=== PATIENT | male | born 1980 | race African-American/Black ===

== ENCOUNTER 2022-10-26 22:18 | Emergency (ER) | payer OTHER, SELFPAY ==
[2022-10-26 22:25] VITALS: BP 192/115; PULSE 91; RESP 16; TEMP 36.7; O2SAT 99; BMI 29.0
[2022-10-26 22:28] VITALS: BP 192/115
[2022-10-26 22:43] VITALS: PULSE 91
--- NOTE | 2022-10-26 22:56 | ECG_ITS ---
[facility] Test Date: 2022-10-26 Pat Name: NARAYAN GARZA Department: Room: - Gender: Male [employer] Activities Clerk: : 1980 Requested By: SHAIKH JUAN Order Number: [id number] Reading MD: LAYLA URIBE Measurements Intervals [place] Rate: 91 P: 62 [place]: 168 QRS: -31 QRSD: 90 T: 79 QT: 382 QTc: 431 Interpretive Statements 1100 Sinus rhythm 4068 Nonspecific [place] abnormality 7200 Abnormal left axis deviation 8003 Consistent with pulmonary disease 9150 abnormal ECG No previous ECG available for comparison Electronically Signed On 10-27-2022 6:43:16 EDT by LAYLA URIBE
--- NOTE | 2022-10-26 22:58 | ED.GENADUL1 ---
HPI - General Adult General Chief complaint: Chest Pain Stated complaint: CHEST PAIN Time Seen by Provider: 10/26/22 22:45 Source: patient Mode of arrival: walk-in History of Present Illness HPI narrative: 42-year-old male presents for evaluation of muscle spasms. Initially they were in his right flank earlier today and then started having them on the left side of his chest. He denies any shortness of breath. He has not smoke. He denies any nausea vomiting or diarrhea. 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 He states that he feels like he keeps up with his fluid intake and drinks plenty of bottles of water throughout the day. He is tearful and anxious. He states he feels like there is something seriously wrong with him. He is not suicidal or homicidal. He states that he is and has kids. He is not having any personal issues at this time. He was recently seen by Dr. Damon and medications were ordered for him but he has not started them yet. Related Data Home Medications Medication Instructions Recorded Confirmed amlodipine 10 mg tablet 10 mg PO QDAY 10/26/22 10/26/22 amlodipine 5 mg tablet 5 mg PO QDAY 10/26/22 10/26/22 fluoxetine 10 mg tablet 10 mg PO QDAY 10/26/22 10/26/22 hydroxyzine HCl 25 mg tablet 25 mg PO Q8H 10/26/22 10/26/22 lamotrigine 25 mg tablet 25 mg PO Q12H 10/26/22 10/26/22 losartan 100 1 tab PO QDAY 10/26/22 10/26/22 mg-hydrochlorothiazide 25 mg tablet naltrexone 50 mg tablet 50 mg PO Q24H 10/26/22 10/26/22 Allergies Allergy/AdvReac Type Severity Reaction Status Date / Time Penicillins Allergy Intermediate hives Verified 10/26/22 22:36 Review of Systems ROS Status of ROS 10 or more systems reviewed and unremarkable except as noted in history and below PFSH PFS Social History Smoking status: Never smoker Exam Narrative Exam Narrative: Nurses note and vital signs reviewed and patient is not hypoxic. Pressure was notably elevated at arrival General: Nontoxic but tearful otherwise well-appearing -[place] male, no respiratory distress Skin: Warm, dry, no pallor noted. There is no rash noted. Head: Normocephalic, atraumatic Eye: Normal conjunctiva, no drainage, EOMI. PERRL Ears, Nose, Mouth, and Throat: oral mucosa is dry Cardiovascular: Regular Rate and Rhythm S1-S2, no murmurs rubs or gallops appreciated Respiratory: Patient is in no distress, no accessory muscle use, lungs are clear to auscultation, no wheezing, rales or rhonchi Back: non-tender, no CVA tenderness bilaterally to percussion. GI: Normal bowel sounds, no tenderness to palpation, no masses appreciated. No rebound, guarding, or rigidity noted. Musculoskeletal: The patient has no evidence of calf tenderness, no pitting edema, symmetrical pulses noted bilaterally Neurological: A&O x4, normal speech, No focal deficits Psychiatric: Cooperative, Tearful, anxious Constitutional Vital Signs, click to edit/add: Last Vital Signs Temp 98.0 F 10/26/22 22:25 Pulse 91 H 10/26/22 22:25 Resp 16 10/26/22 22:25 BP 130/80 H 10/27/22 01:30 Pulse Ox 99 10/26/22 22:25 O2 Del Method Room Air 10/26/22 22:25 Course Vital Signs Vital signs: Vital Signs Temperature 98.0 F 10/26/22 22:25 Pulse Rate 91 H 10/26/22 22:25 Respiratory Rate 16 10/26/22 22:25 Blood Pressure 192/115 H 10/26/22 22:25 Pulse Oximetry 99 10/26/22 22:25 Oxygen Delivery Method Room Air 10/26/22 22:25 Temperature 98.0 F 10/26/22 22:25 Pulse Rate 91 H 10/26/22 22:25 Respiratory Rate 16 10/26/22 22:25 Blood Pressure 130/80 H 10/27/22 01:30 Pulse Oximetry 99 10/26/22 22:25 Oxygen Delivery Method Room Air 10/26/22 22:25 Medical Decision Making MDM Narrative Medical decision making narrative: This 42-year-old -[place] male with a history of anxiety and hypertension presents for evaluation of left-sided chest pain and muscle spasms. He states he was formerly having muscle spasms in his right flank and then started having them in his left chest which scared him. He does work outside in construction but feels that he keeps up on his daily intake of fluids and take supplemental magnesium and potassium. Upon arrival he was tearful, anxious, and EKG was ordered at triage that was a sinus rhythm at 90 bpm with a left axis and otherwise normal. An IV was placed and he was given IV fluids and Toradol as well as IM Valium for his muscle spasms. Routine labs are reviewed. He has a mildly elevated white count at 12.2 with a normal hemoglobin. He has a normal troponin and d-dimer. He has a low sodium at 130 and low potassium at 2.9. He was given oral and IV potassium supplementation. Chest x-ray was negative for acute findings. On reevaluation he was calm, comfortable and his muscle spasms have resolved. He was feeling well enough to be discharged home. He was discharged home with prescription for potassium and Robaxin to use as needed for muscle spasms. I encouraged him to drink plenty of fluids including electrolyte-containing fluids such as Gatorade or other additives to water that contained sodium, potassium and other electrolytes. He is in agreement with this plan. His initial blood pressure was markedly elevated but after he calmed down and even before he received his medications his blood pressure was in the 130s over 80s. Lab Data Lab results reviewed: Yes I reviewed the patient's lab results Lab results narrative: low sodium at 1:30 and low potassium at 2.9. The remainder of his labs including troponin and d-dimer are normal. Labs: Lab Results 10/26/22 Range/Units 22:35 WBC 12.2 H (4.0-11.0) 10^3/uL RBC 5.29 (4.70-6.10) 10^6/uL Hgb 14.6 (14.0-18.0) g/dL Hct 44.6 (42.0-54.0) % MCV 84.3 (80.0-94.0) fL MCH 27.6 (25.9-34.0) pg MCHC 32.7 (29.9-35.2) g/dL RDW 14.0 (11.0-15.0) % Plt Count 296 (150-450) 10^3/uL MPV 9.7 (9.5-13.5) fL Neut % (Auto) 50.4 (43.0-75.0) % Lymph % (Auto) 38.6 (20.5-60.0) % [place] % (Auto) 9.4 (1.7-12.0) % Eos % (Auto) 1.1 (0.9-7.0) % Baso % (Auto) 0.3 (0.2-2.0) % Neut # (Auto) 6.2 (1.4-6.5) 10^3/uL Lymph # (Auto) 4.7 H (1.2-3.8) 10^3/uL [place] # (Auto) 1.2 H (0.3-0.8) 10^3/uL Eos # (Auto) 0.1 (0.0-0.7) 10^3/uL Baso # (Auto) 0.0 (0.0-0.1) 10^3/uL Abs Immat Gran (auto) 0.03 (0.00-0.03) 10^3/uL Imm/Tot Granulo (auto) 0.2 (0.0-0.5) % D-Dimer <0.19 (<=0.59) mg/L FEU Sodium 130 L (136-145) mmol/L Potassium 2.9 L* (3.5-5.1) mmol/L Chloride 94 L (98-107) mmol/L Carbon Dioxide 28.1 (21.0-32.0) mmol/L Anion Gap 10.8 BUN 11.0 (7.0-18.0) mg/dL Creatinine 1.19 (0.70-1.30) mg/dL Est GFR ( Amer) >60 (>=60) Est GFR (Non-Af Amer) >60 (>=60) BUN/Creatinine Ratio 9.2 Glucose 129 H (74-106) mg/dL Calcium 8.7 (8.5-10.1) mg/dL Magnesium 2.4 (1.8-2.4) mg/dL Total Bilirubin 0.8 (0.2-1.0) mg/dL AST 27 (15-37) U/L ALT 25 (16-63) U/L Alkaline Phosphatase 47 (46-116) U/L Troponin I High Sens 7.3 (4.0-76.1) pg/mL Total Protein 9.1 H (6.4-8.2) g/dL Albumin 4.5 (3.4-5.0) g/dL Globulin 4.6 g/dL Albumin/Globulin Ratio 1.0 ECG Data Attestation: I personally reviewed and interpreted this ECG as follows: (Sinus rhythm at 90 beats for minute, left axis deviation, nonspecific ST changes, no acute ST segment elevation or T-wave inversion) Discharge Plan Discharge Chief Complaint: Chest Pain Clinical Impression: Muscle spasm, Chest pain, non-cardiac, Hypokalemia Patient Disposition: Home, Self-Care Time of Disposition Decision: 01:11 Condition: Good Prescriptions / Home Meds: No Action amlodipine 10 mg tablet 10 mg PO QDAY amlodipine 5 mg tablet 5 mg PO QDAY fluoxetine 10 mg tablet 10 mg PO QDAY hydroxyzine HCl 25 mg tablet 25 mg PO Q8H lamotrigine 25 mg tablet 25 mg PO Q12H losartan-hydrochlorothiazide 100-25 mg tablet 1 tab PO QDAY naltrexone 50 mg tablet 50 mg PO Q24H Instructions: Potassium Content of Foods List (ED), Hypokalemia (ED), Muscle Spasm (ED), Noncardiac Chest Pain (ED) Stand Alone Forms: Portal Instructions Referrals: Shaikh Damon MD [Primary Care Provider] - 1 week Discharge Date/Time: 10/27/22 01:40
[2022-10-26 23:09] LABS: Basophils Percent Auto 0.3 % (0.2-2.0); Eosinophils Absolute Auto 0.1 10^3/uL (0.0-0.7); Eosinophils Percent Auto 1.1 % (0.9-7.0); Hematocrit 44.6 % (42.0-54.0); Hemoglobin 14.6 g/dL (14.0-18.0); Immature Granulocytes Abs Auto 0.03 10^3/uL (0.00-0.03); Immature Granulocytes Pct Auto 0.2 % (0.0-0.5); Lymphocytes Absolute Auto 4.7 10^3/uL (1.2-3.8); Lymphocytes Percent Auto 38.6 % (20.5-60.0); Mean Corpuscular HGB Conc 32.7 g/dL (29.9-35.2); Mean Corpuscular Hemoglobin 27.6 pg (25.9-34.0); Mean Corpuscular Volume 84.3 fL (80.0-94.0); Mean Platelet Volume 9.7 fL (9.5-13.5); Monocytes Absolute Auto 1.2 10^3/uL (0.3-0.8); Monocytes Percent Auto 9.4 % (1.7-12.0); Neutrophils Absolute Auto 6.2 10^3/uL (1.4-6.5); Neutrophils Percent Auto 50.4 % (43.0-75.0); Platelet Count 296 10^3/uL (150-450); Red Blood Count 5.29 10^6/uL (4.70-6.10); White Blood Count 12.2 10^3/uL (4.0-11.0)
[2022-10-26 23:16] LABS: Magnesium 2.4 mg/dL (1.8-2.4)
[2022-10-26 23:19] LABS: D Dimer <0.19 mg/L FEU (<=0.59)
[2022-10-26 23:25] LABS: Alanine Aminotransferase 25 U/L (16-63); Albumin Level 4.5 g/dL (3.4-5.0); Alkaline Phosphatase 47 U/L (46-116); Anion Gap 10.8; Aspartate Amino Transferase 27 U/L (15-37); BUN Creatinine Ratio 9.2; Bilirubin Total 0.8 mg/dL (0.2-1.0); Calcium 8.7 mg/dL (8.5-10.1); Carbon Dioxide 28.1 mmol/L (21.0-32.0); Chloride 94 mmol/L (98-107); Estimated GFR (African America >60 (>=60); Estimated GFR (Non-African Ame >60 (>=60); Globulin 4.6 g/dL; Glucose 129 mg/dL (74-106); Sodium 130 mmol/L (136-145); Total Protein 9.1 g/dL (6.4-8.2); Troponin I High Sensitivity 7.3 pg/mL (4.0-76.1)
[2022-10-26] MEDS: 0.9 % SODIUM CHLORIDE 1,000 ML 1000 ML IV (23:25)
[2022-10-26] MEDS: KETOROLAC TROMETHAMINE 30 MG/ML VIAL IVP (23:25)
[2022-10-26] MEDS: DIAZEPAM 5 MG/ML - 2 ML INJ SYRINGE IM (23:26)
[2022-10-26 23:32] LABS: Potassium 2.9 mmol/L (3.5-5.1)
[2022-10-26 23:42] VITALS: BP 137/91
[2022-10-26] MEDS: POTASSIUM CHLORIDE 10 MEQ IN WATER 100 ML PIGGYBACK IV (23:53)
[2022-10-26] MEDS: POTASSIUM CHLORIDE 10 MEQ ER TABLET 40 MEQ PO (23:53)
[2022-10-26 23:57] VITALS: BP 146/94
[2022-10-27] VITALS: BP 142/83
[2022-10-27 00:31] VITALS: BP 122/99
[2022-10-27 01:01] VITALS: BP 140/88
[2022-10-27 01:30] VITALS: BP 130/80
== END 2022-10-27 01:40 | disposition home or self-care (01) ==
PROVIDERS: Emergency Provider Emergency Medicine; PCP Internal Medicine
DX: M62.838 Other muscle spasm (principal); E87.6 Hypokalemia; R07.89 Other chest pain; Z79.899 Other long term (current) drug therapy; F41.9 Anxiety disorder, unspecified; I10 Essential (primary) hypertension
CPT/HCPCS: 36415; 80053; 83735; 84484; 85025; 85378; 93005; 96372; 96374; 96375; 99285

== ENCOUNTER 2023-03-24 11:57 | Outpatient (OUT) | payer BC, SELFPAY ==
[2023-03-24 12:18] LABS: Basophils Absolute Auto 0.1 10^3/uL (0.0-0.1); Basophils Percent Auto 0.6 % (0.2-2.0); Eosinophils Absolute Auto 0.1 10^3/uL (0.0-0.7); Hematocrit 41.7 % (42.0-54.0); Hemoglobin 13.5 g/dL (14.0-18.0); Immature Granulocytes Abs Auto 0.02 10^3/uL (0.00-0.03); Immature Granulocytes Pct Auto 0.2 % (0.0-0.5); Lymphocytes Absolute Auto 2.4 10^3/uL (1.2-3.8); Lymphocytes Percent Auto 22.4 % (20.5-60.0); Mean Corpuscular HGB Conc 32.4 g/dL (29.9-35.2); Mean Corpuscular Hemoglobin 27.9 pg (25.9-34.0); Mean Corpuscular Volume 86.2 fL (80.0-94.0); Mean Platelet Volume 9.1 fL (9.5-13.5); Monocytes Absolute Auto 1.1 10^3/uL (0.3-0.8); Monocytes Percent Auto 10.1 % (1.7-12.0); Neutrophils Absolute Auto 7.1 10^3/uL (1.4-6.5); Neutrophils Percent Auto 65.7 % (43.0-75.0); Platelet Count 293 10^3/uL (150-450); Red Blood Count 4.84 10^6/uL (4.70-6.10); Red Cell Distribution Width 14.3 % (11.0-15.0); White Blood Count 10.9 10^3/uL (4.0-11.0)
[2023-03-24 13:30] LABS: Alanine Aminotransferase 29 U/L (16-63); Albumin Globulin Ratio 0.8; Albumin Level 3.9 g/dL (3.4-5.0); Alkaline Phosphatase 49 U/L (46-116); Anion Gap 9.9; Aspartate Amino Transferase 21 U/L (15-37); BUN Creatinine Ratio 12.7; Bilirubin Total 0.8 mg/dL (0.2-1.0); Carbon Dioxide 29.6 mmol/L (21.0-32.0); Chloride 101 mmol/L (98-107); Estimated GFR (African America >60 (>=60); Estimated GFR (Non-African Ame >60 (>=60); Globulin 4.6 g/dL; Glucose 93 mg/dL (74-106); Potassium 3.5 mmol/L (3.5-5.1); Sodium 137 mmol/L (136-145); Total Protein 8.5 g/dL (6.4-8.2)
[2023-03-29 12:09] LABS: Free Testosterone(Direct) 8.7 pg/mL (6.8-21.5); Testosterone 589 ng/dL (264-916)
== END 2023-03-24 11:58 | disposition home or self-care (01) ==
LOC: LAB 12:00
PROVIDERS: PCP Internal Medicine; Visit Provider Internal Medicine
DX: R79.89 Other specified abnormal findings of blood chemistry (principal); I10 Essential (primary) hypertension
CPT/HCPCS: 36415; 80053; 84402; 84403; 85025

== ENCOUNTER 2023-06-14 15:38 | Outpatient (OUT) | payer BC, SELFPAY | END 2023-06-14 15:39 | disposition home or self-care (01) | LOC: SLEEP 15:38 | PROVIDERS: PCP Internal Medicine; Visit Provider Internal Medicine | DX: G47.33 Obstructive sleep apnea (adult) (pediatric) (principal) | CPT/HCPCS: 95806 ==